=== PATIENT | male | born 1970 | race Caucasian/White ===

== ENCOUNTER 2024-02-16 08:48 | Emergency (ER) | payer BC, MEDICAID ==
[2024-02-16] MEDS: Lidocaine 2% Viscous Solution 15 ML UD PO ONE (09:37)
[2024-02-16] MEDS: Benzocaine 20% Topical Spray UD MUCMEM ONE (09:37)
== END 2024-02-16 09:41 | disposition home or self-care (01) ==
LOC: MW.ED 08:48
DX: K08.89 Other specified disorders of teeth and supporting structures (principal); I10 Essential (primary) hypertension; F17.210 Nicotine dependence, cigarettes, uncomplicated; Z90.49 Acquired absence of other specified parts of digestive tract; Z79.2 Long term (current) use of antibiotics; Z79.899 Other long term (current) drug therapy; Z75.8 Other problems related to medical facilities and other health care
CPT/HCPCS: 99282; A9270